=== PATIENT | female | born 1965 | race Caucasian/White ===

== ENCOUNTER → 2017-12-29 16:43 | Outpatient (CLI) | payer BC, OTHER, SELFPAY ==
--- NOTE | 2017-12-29 16:46 | MM_ITS ---
MM Dig screening mamm BI w/CAD CAD Screening COMPARISON: Digital mammograms with CAD 12/25/2016 and 12/16/2015 INDICATION: There is no personal or family history of breast cancer TECHNIQUE: Standard CC and MLO images were obtained. R2 CAD reviewed. FINDINGS: The breasts are composed primarily of fat with very minimal scattered fibro glandular densities in each breast. There is a benign-appearing calcification right breast. There is no suspicious lesion and there are no suspicious microcalcifications. IMPRESSION: Fatty type breast parenchyma with no suspicious lesion seen BI-RADS Category: 2 Benign Finding(s) RECOMMENDED FOLLOW-UP: 1YR - 1 YEAR FOLLOW-UP (A letter has been sent to the patient regarding results of the study.)
== END ==
PROVIDERS: PCP Family Medicine; Visit Provider Family Medicine
DX: Z12.31 Encounter for screening mammogram for malignant neoplasm of breast (principal)
CPT/HCPCS: 77067

== ENCOUNTER → 2019-01-11 16:44 | Outpatient (CLI) | payer BC, SELFPAY ==
--- NOTE | 2019-01-11 | MM_ITS ---
PROCEDURE: MM DIG SCREENING MAMM BI W/CAD CLINICAL INDICATION: There is no personal or family history of breast cancer COMPARISON: [facility] DIG MAMM-SCREEN LEXA from 12/16/2015 [facility] DIG MAMM-SCREEN LEXA W/CAD from 12/25/2016 [facility] MM Dig screening mamm BI w/CAD from 12/29/2017 TECHNIQUE: Standard CC and MLO images were obtained. R2 CAD reviewed. FINDINGS: The breasts are composed primarily of fat with minimal scattered fibroglandular densities in each breast. There is a benign-appearing calcification right breast. There is no suspicious lesion and no suspicious microcalcifications. IMPRESSION: Fatty type breast parenchyma with no suspicious lesions seen BI-RAD Category: 2 Benign Finding(s) FOLLOW-UP: 1YR 1 Year Follow-up (A letter has been sent to the patient regarding results of the study.) Dictated by: Dr. Pabol Chu MD 01/13/2019 08:[address] Pablo Chu MD in [facility] 01/13/2019 08:10
== END ==
PROVIDERS: PCP Family Medicine; Visit Provider Family Medicine
DX: Z12.31 Encounter for screening mammogram for malignant neoplasm of breast (principal)
CPT/HCPCS: 77067

== ENCOUNTER → 2020-07-10 07:46 | Outpatient (CLI) | payer SELFPAY ==
--- NOTE | 2020-07-10 07:53 | CT_ITS ---
PROCEDURE: CT HEART W CALCIUM SCORE CLINICAL HISTORY: SCREENING COMPARISON: No exams were available for comparison TECHNIQUE: Axial images obtained with sagittal and coronal reformats. All CT scans at the facility use one or more dose reduction, viz: automated exposure control, ma/kV adjustment per patient size (including targeted exams where dose is matched to indication, i.e. head), or iterative reconstruction technique. FINDINGS: The coronary artery calcium score is 53 Mild calcific plaque burden with moderate cardiovascular disease risk. There is also some aortic valve calcification noted the IMPRESSION: Mild calcific plaque burden with moderate cardiovascular disease risk Dictated by: Angelo Smyth MD 07/10/2020 12:51 Angelo Smyth MD in [facility] 07/10/2020 12:51
== END ==
PROVIDERS: PCP Family Medicine; Visit Provider Family Medicine
DX: Z13.6 Encounter for screening for cardiovascular disorders (principal)
CPT/HCPCS: 75571

== ENCOUNTER → 2022-10-28 14:40 | Outpatient (CLI) | payer OTHER, SELFPAY ==
--- NOTE | 2022-10-28 14:47 | XR_ITS ---
FINAL REPORT CLINICAL HISTORY: LT SIDED LOW BACK PAIN FINDINGS: LUMBAR SPINE Five views demonstrate no acute fracture. There are mild and moderate degenerative changes. Vascular calcification is identified. There is no malalignment. IMPRESSION: Degenerative changes without acute bony abnormality. Reviewed, Interpreted and Dictated by Royce Arnold III, MD Transcribed by Sonal Nick Authenticated and . [facility]
== END ==
PROVIDERS: PCP Family Medicine; Visit Provider Family Medicine
DX: M54.50 Low back pain, unspecified (principal)
CPT/HCPCS: 72110

== ENCOUNTER 2023-03-20 10:03 | Outpatient (CLI) | payer OTHER, SELFPAY ==
--- NOTE | 2023-03-20 10:08 | XR_ITS ---
PROCEDURE INFORMATION: Exam: XR Right Shoulder Exam date and time: 03/20/2023 10:11 AM Age: 57 years old Clinical indication: Pain; Shoulder; Right TECHNIQUE: Imaging protocol: Radiologic exam of the right shoulder. Views: 2 or more views. COMPARISON: CT HEART W CALCIUM SCORE 07/10/2020 7:59 AM FINDINGS: Bones/joints: Normal. Lungs: Calcified granulomas are incidentally noted in the lungs. Soft tissues: Normal. IMPRESSION: No acute process in the right shoulder.
== END 2023-03-20 23:59 ==
LOC: RAD 10:05
PROVIDERS: PCP Family Medicine; Visit Provider Family Medicine
DX: M25.511 Pain in right shoulder (principal)
CPT/HCPCS: 73030

== ENCOUNTER 2024-09-26 16:21 | Outpatient (CLI) | payer BC, SELFPAY ==
--- OUTSIDE RECORDS SUMMARY | 2024-08-18 07:45 | XMS_ITS ---
Author Organization [facility] Address [address] [facility] [address] [place] [id number] Care Team Providers Care Clinical Application Consultant Name Role Phone Oliver Munroe Primary Care Provider Allergies Allergen (clinical drug ingredient) Drug/Non Drug Allergy documented on EMR Reaction Allergy Type Onset Date Status amoxicillin / clavulanate Augmentin Unknown Drug Allergy Active ibuprofen Ibuprofen Unknown Drug Allergy Active Results Component Value Reference Range Notes P-T4 Free (thyroxine) Reviewed date:08/23/2024 01:12:16 PM Interpretation:Normal Performing Lab: Notes/Report: Test performed by [employer] [address], [address], [place] [address] Amauri Silva MD, Manager Electrical CLIA: [id number] Thyroxine Free (free T4) 1.24 0.86-1.76 ng/dL P-Total T3 Reviewed date:08/23/2024 01:12:17 PM Interpretation:Normal Performing Lab: Notes/Report: Test performed by [facility] [address] [place], [place] [address] [address], [address], [place] [address] Amauri Silva MD, Manager Electrical CLIA: [id number] Total T3 1.67 0.80-2.00 ng/mL P-T3 Uptake Reviewed date:08/23/2024 01:12:17 PM Interpretation:Normal Performing Lab: Notes/Report: Test performed by [facility] [address] [place] [address] [address], [address], [place] [address] Aamuri Silva MD, Manager Electrical CLIA: [id number] T3 Uptake 1.04 0.80-1.30 TBI Free T4 (FT4), which more accurately reflects how the thyroid gland is functioning, especially in hypothyroidism, (https://www.thyroid.org/thyroid -function-tests/), is the preferred alternative, compared to T3 uptake and free thyroxine index tests. P-TSH Receptor Binding Antib dagmar Reviewed date:08/23/2024 01:12:17 PM Interpretation:Normal Performing Lab: Notes/Report: Test performed by [facility] [address] , [address], [place] [address] Amauri Silva MD, Manager Electrical CLIA: [id number] TSH Receptor Binding Antibody <1.1 <1.76 IU/L P-TSI (Thyroid Stimulating I mmunoglobulin) Reviewed date:08/23/2024 01:12:17 PM Interpretation:Normal Performing Lab: Notes/Report: TSI (Thyroid Stimulating Immunoglobulin) <0.10 <=0.54 IU/L INTERPRETIVE INFORMATION: Thyroid Stimulating Immunoglobulin (TSI) 0.54 IU/L or less.........Consistent with healthy thyroid function or non-Graves thyroid or autoimmune disease. Those with healthy thyroid function typically have results less than 0.1 IU/L. 0.55 IU/L or greater......Consistent with Graves disease (autoimmune hyperthyroidism) This assay specifically detects thyroid stimulating autoantibodies. For diagnostic purposes, the results obtained from this assay should be used in combination with clinical examination, patient medical history, and other findings. Performed By: [email or web address] [address] [place] [address] Manager Electrical: Garcia Lakhani MD, PhD CLIA Number: [id number] REASON FOR VISIT b/p high Medications Medication SIG (Take, Route, Frequency, Duration) Notes Start Date End Date Status Glimepiride 4 MG 1 tablet with breakf ast or the first main meal of the day Orally Once a day 03/20/2023 Active Irbesartan 150 MG 1 tablet Orally Once a day; Duration: 30 days 08/18/2024 Active Janumet XR 50-1000 MG 2 tab(s) orally on ce a day (in the evening); Duration: 90 days Active Essential One Daily Multivit - 1 tab(s) orally once a day A ctive Farxiga 10 MG 1 tablet Orally Once a day Active Terbinafine HCl 250 MG 1 tablet Orally O nce a day; Duration: 90 days 01/08/2024 Active Metoprolol Succinate ER 50 MG 1 tablet Orally Once a day; Duration: 90 days 05/19/2024 Active Pravastatin Sodium 40 MG 1 tablet Orally Once a day; Duration: 90 days Active ReliOn Premier Test - as directed once daily 06/08 Active methIMAzole 10 MG 1 tablet Orally Once a day Active Estrogens Conjugated 0.625 MG/GM 1 applicatorful Vaginal Once a day 01/08/2024 Active Vital Signs Weight 192 lbs 08/18/2024 Blood pressure systolic 160 mm Hg 08/19/19 25 Blood pressure diastolic 88 mm Hg 025 Heart Rate 80 /min 08/18/2024 Height 69 in 08/18/2024 BMI 28.35 kg/m2 08/18/2024 Encounters Encounter Location Date Provider Diagnosis [facility] [address] [facility] [address] [place] [id number] 08/18/2024 Oliver Munroe Essential hypertensi on I10 ; Hyperthyroidism E05.90 and BMI 28.0-28.9,adult Z68.28 Assessments Encounter Date Diagnosis (ICD Code) Assessment Notes Treatment Notes Treatment Clinical Notes Section Notes 08/18/2024 Essential hypertension (ICD-10 - I10) Blood pressure journal 08/18/2024 Hyperthyroidism (ICD-10 - E05.90) 08/18/2024 BMI 28.0-28.9,adult (ICD-10 - Z68.28) Plan Of Treatment Medication Medication Name Sig Start Date Stop Date Notes Irbesartan 150 MG 1 tablet Orally Once a day; Duration: 30 days 08/18/2024 methIMAzole 10 MG 1 tablet Orally Once a day Treatment Notes Assessment Notes Essential hypertension Blood pressure cinthia Jauregui Appt Details Follow Up: via phone to repo rt test results, Reason: Provider Name:Oliver rodriguez, 12/11/2024 05:00:00 PM, [address], [address], [place], [id number], Progress Notes * Brina JACOBS:1965 ( 59 yo F)Acc No.[id number]:08/18/2024 Progress Notes Patient: Anne Marie CASTRO Provider: Aron Munroe M.D. :1965 A ge:58 Y S ex:Female Date:08/18/2024 Address:[address] [place] [address], [facility], [id number] Subjective: * Chief Complaints: * 1 . B/p high. * HPI: C ardiology: 58 year old female presents with c/o Blood Pressure Elevated?Pt complains of elevated bp at home. Pt states she had some dizziness yesterday and systolic was in the 160's. * ROS: D ERMATOLOGY: no R charley. n o H hugo. G ASTROENTEROLOGY: no N ausea. n o V omiting. U ROLOGY: no D ifficulty urinating. n o B lood in urine. * Medical History: T ype 2 Diabetes, Hyperlipidemia, Hypothyroidism, Goiter, low TSH, Kidney Stones, Hypertension. * Surgical History: T hyroid Biopsy 2006. * Hospitalization/Major Diagno stic Procedure: Juan enies Past Hospitalization. * Family History: F ather: 55 yrs, pancreatic cancer. M other: alive. * Social History: C URRENT TOBACCO USE: No . C affeine: yes, frequency: coffee daily. Past smoking status: no, 15 pack year history, quit 10/29. * Medications: T aking Essential One Daily Multivit - Tablet 1 tab(s) orally once a day , Taking Estrogens Conjugated 0.625 MG/GM Cream 1 applicatorful Vaginal Once a day , Taking Terbinafine HCl 250 MG Tablet 1 tablet Orally Once a day , Taking Pravastatin Sodium 40 MG Tablet 1 tablet Orally Once a day , Taking Metoprolol Succinate ER 50 MG Tablet Extended Release 24 Hour 1 tablet Orally Once a day , Taking ReliOn Premier Test - Strip as directed once daily , Taking Farxiga 10 MG Tablet 1 tablet Orally Once a day , Taking Glimepiride 4 MG Tablet 1 tablet with breakfast or the first main meal of the day Orally Once a day , Taking Janumet XR 50-1000 MG Tablet Extended Release 24 Hour 2 tab(s) orally once a day (in the evening) , Taking methIMAzole 10 MG Tablet 1 tablet Orally Once a day , Medication List reviewed and reconciled with the patient * Allergies: I buprofen, Augmentin. Objective: * Vitals: W t: 192, Temp: 97.9, BP: 160/88, HR: 80, Nurse: david, Ht: 69, BMI:28.35. * Examination: E ndocrinology: General Appearance: N AD. H eart: R SR. L ungs:?clear to auscultation. E xtremities: no leg edema. Assessment: * Assessment: 1. E ssential hypertension - I10 (Primary) 2 . H yperthyroidism - E05.90? 3. B DE 28.0-28.9,adult - Z68.28 Plan: * Treatment: 2. H yperthyroidism Continue methIMAzole Tablet, 10 MG, 1 tablet, Orally, Once a day. L AB: P-T4 Free (thyroxine) (Collection Date & Time - 08/18/2024 11:15 AM) N ormal Value Reference Range T hyroxine Free (free T4) 1.24 0.86-1.76 - ng/d L * Paris Henningira 08/23/2024 01:11:3 6 PM EDT > Left detailed message on pt's identified voicemail ?LAB: P-Total T3 (Collection Date & Time - 08/18/2024 11:15 AM)?Normal* Value Reference Range T otal T3 1.67 0.80-2.00 - ng/mL * Juvencio Monique 08/23/2024 01:11:3 6 PM EDT > Left detailed message on pt's identified voicemail ?LAB: P-T3 Uptake (Collection Date & Time - 08/18/2024 11:15 AM)?Normal* Value Reference Range T 3 Uptake 1.04 0.80-1.30 - TBI * Juvencio Monique 08/23/2024 01:11:3 6 PM EDT > Left detailed message on pt's identified voicemail ?LAB: P-TSH Receptor Binding Antibody (Collection Date & Time - 08/18/2024 11:15 AM)?Normal* Value Reference Range T SH Receptor Binding Antibody <1.1 <1.76 - IU/ L * Monique Henning 08/23/2024 01:11:3 6 PM EDT > Left detailed message on pt's identified voicemail ?LAB: P-TSI (Thyroid Stimulating Immunoglobulin) (Collection Date & Time - 08/18/2024 11:15 AM)?Normal* Value Reference Range T SI (Thyroid Stimulating Immunoglobulin) <0.10 <=0.54 - IU/L * Monique Henning 08/23/2024 01:11:3 6 PM EDT > Left detailed message on pt's identified voicemail * Procedure Codes: 1 036F TOBACCO NON-USER, G8420 BMI<30 AND >=22 CALC & DOCU * Follow Up: v ia phone to report test results * Images: Billing Information: * Visit Code: 79412 Office Visit, Est Pt., Level 4. * Procedure Codes: 1036F TOBACCO NON-USER. G8420 BMI<30 AND >=22 CALC & DOCU. * Electronic signature of Kim Munroe MD on 09/26/2024 at 04:23 PM EDT Sign off status: Pending * Provider: Aron Munroe M.D. Date: 0 08/18/2024 Generated for Minh diez/Lenore/Elvira on: 0 09/26/2024 04:23 PM EDT History and Physical Notes * HPI (History of Present Illness) Category Sub-Category Detail Notes Category Not es Cardiology Blood Pressure Elevated Pt compl ains of elevated bp at home. Pt states she had some dizziness yesterday and systolic was in the 160's Examination Category Sub-Category Detail Notes Category Not es Endocrinology Heart: RSR Lungs: clear to auscultatio n Extremities: no leg edema General Appearance: NAD
--- OUTSIDE RECORDS SUMMARY | 2024-09-04 13:00 | XMS_ITS ---
Author Organization [facility] Address [address] [id number] Care Team Providers Care Vp Care Management Name Role Phone Oliver Munroe Primary Care Provider [phone] Allergies Allergen (clinical drug ingredient) Drug/Non Drug Allergy documented on EMR Reaction Allergy Type Onset Date Status amoxicillin / clavulanate Augmentin Unknown Drug Allergy Active ibuprofen Ibuprofen Unknown Drug Allergy Active Results Component Value Reference Range Notes Glucose (In-House) Reviewed date:09/05/2024 09:40:49 AM Interpretation: Performing Lab: Notes/Report: blood glucose 120 74 - 106 mg/dL Glycohemoglobin A1c (in hous e) Reviewed date:09/05/2024 09:40:40 AM Interpretation: Performing Lab: Notes/Report: glycohemoglobin 8.4% 5 - 6.5 % Reason For Referral Reason [facility] [place] Diagnosis 1 Plantar fasciitis of left foot (M72.2) Referral Organization [facility] Referring Provider First Name Oliver Referring Provider Last Name Ludwig Referring Provider Speciality [facility] Referred Provider Podiatry, ., Referred Provider Specialty Podiatry General Notes Rebecca Buitrago 2024 10:32:03 AM > faxed to [facility] [place] Referral Priority Routine REASON FOR VISIT 3 months Medications Medication SIG (Take, Route, Frequency, Duration) Notes Start Date End Date Status Metoprolol Succinate ER 50 MG 1 tablet Orally Once a day; Duration: 90 days 05/19/2024 Active ReliOn Premier Test - as directed once daily 06/08 Active Irbesartan 150 MG 1 tablet Orally Once a day; Duration: 30 days 08/18/2024 Active methIMAzole 10 MG 1 tablet Orally Once a day Active Terbinafine HCl 250 MG Take 1 tablet by mouth once daily; Duration: 90 Active Farxiga 10 MG 1 tablet Orally Once a day Active Janumet XR 50-1000 MG 2 tab(s) orally on ce a day (in the evening) Active Glimepiride 4 MG 1 tablet with breakf ast or the first main meal of the day Orally Once a day 03/20/2023 Active Estrogens Conjugated 0.625 MG/GM 1 applicatorful Vaginal Once a day 01/08/2024 Active Pravastatin Sodium 40 MG 1 tablet Orally Once a day; Duration: 90 days Active Mounjaro 2.5 MG/0.5ML 0.5 mL Subcutaneous weekly 0 09/04/2024 Active Essential One Daily Multivit - 1 tab(s) orally once a day A ctive Problems Problem Type SNOMED Code ICD Code Onset Dates Problem Status W/U Status Risk Notes Problem Plantar fasciitis of left foot ([id number] 9101) Plantar fasciitis of left foot (M72.2) Active confirmed Vital Signs Weight 196.6 lbs 09/04/2024 Blood pressure systolic 122 mm Hg 09/05/19 25 Blood pressure diastolic 68 mm Hg 025 Heart Rate 78 /min 09/04/2024 Height 69 in 09/04/2024 BMI 29.03 kg/m2 09/04/2024 Encounters Encounter Location Date Provider Diagnosis [facility] [address] [facility] [address] [id number] 09/04/2024 Oliver Munroe Type 2 diabetes bharath itus without complication E11.9 ; Plantar fasciitis of left foot M72.2 and BMI 29.0-29.9,adult Z68.29 Assessments Encounter Date Diagnosis (ICD Code) Assessment Notes Treatment Notes Treatment Clinical Notes Section Notes 09/04/2024 Type 2 diabetes mellitus without complication (ICD-10 - E11.9) 09/04/2024 Plantar fasciitis of left foot (ICD-10 - M72.2) 09/04/2024 BMI 29.0-29.9,adult (ICD-10 - Z68.29) Plan Of Treatment Medication Medication Name Sig Start Date Stop Date Notes Farxiga 10 MG 1 tablet Orally Once a day Janumet XR 50-1000 MG 2 tab(s) orally on ce a day (in the evening) Glimepiride 4 MG 1 tablet with breakf ast or the first main meal of the day Orally Once a day 03/20/2023 Mounjaro 2.5 MG/0.5ML 0.5 mL Subcutaneous weekly 5 Referrals Referral Date Details 09/04/2024 09/04/2024, [facility] [place], ., Podiatry Next Appt Details Follow Up: 3 Months, Reason: Provider Name:Oliver Howell ry, 12/11/2024 05:00:00 PM, [address] [facility] [address], [place], [place], [id number], Progress Notes * Shilpa JACOBSaDOB:1965 ( 59 yo F)Acc No.[id number]:09/04/2024 Progress Notes Patient: Anne Marie CASTRO Provider: Aron Munroe M.D. :1965 A ge:59 Y S ex:Female Date:09/04/2024 Address:[address] [place] [address] [address] , [id number] Subjective: * Chief Complaints: * 1 . 3 months. * HPI: E ndocrinology: 59 year old female presents with c/o Recent Blood Sugars P t here to f/u on DM 2. Pt states her blood sugar at home was over 350 a couple times so she started?taking Glimepiride again on 08/30 and blood sugar has improved . C ardiology: c/o Blood Pressure Elevated P t here to f/u on hypertension. Pt started on Irbesartan 150mg 08/18. Pt states she has been checking bp at home and it have improved 120-133/60's-70's. * ROS: D ERMATOLOGY: no R charley. n o H hugo. G ASTROENTEROLOGY: no N ausea. n o V omiting. U ROLOGY: no D ifficulty urinating. n o B lood in urine. * Medical History: T ype 2 Diabetes, Hyperlipidemia, Hypothyroidism, Goiter, low TSH, Kidney Stones, Hypertension. * Surgical History: T hyroid Biopsy 2006. * Hospitalization/Major Diagno stic Procedure: D enies Past Hospitalization. * Family History: F [...] applicatorful Vaginal Once a day , Taking Pravastatin Sodium 40 MG Tablet 1 tablet Orally Once a day , Taking Metoprolol Succinate ER 50 MG Tablet Extended Release 24 Hour 1 tablet Orally Once a day , Taking ReliOn Premier Test - Strip as directed once daily , Taking Farxiga 10 MG Tablet 1 tablet Orally Once a day , Taking Janumet XR 50-1000 MG Tablet Extended Release 24 Hour 2 tab(s) orally once a day (in the evening) , Taking Irbesartan 150 MG Tablet 1 tablet Orally Once a day , Taking methIMAzole 10 MG Tablet 1 tablet Orally Once a day , Taking Terbinafine HCl 250 MG Tablet Take 1 tablet by mouth once daily , Taking Glimepiride 4 MG Tablet 1 tablet with breakfast or the first main meal of the day Orally Once a day , Medication List reviewed and reconciled with the patient * Allergies: I buprofen, Augmentin. Objective: * Vitals: W t: 196.6, Temp: 97.8, BP: 122/68, HR: 78, Nurse: david, Ht: 69, BMI:29.03. * Examination: E ndocrinology: General Appearance: N AD. H eart: R SR, I/ systolic murmur. L ungs: c lear to auscultation. E xtremities: no leg edema, tenderness to palpation along the mid left plantar fascia. Assessment: * Assessment: 1. T ype 2 diabetes mellitus without complication - E11.9 (Primary) 2 . P lantar fasciitis of left foot - M72.2 3 . B AL 29.0-29.9,adult - Z68.29 ? Plan: * Treatment: Value Reference Range b lood glucose 120 74 - 106 mg/dL * Juvencio Monique 09/04/2024 05:31: 06 PM EDT > Provider reviewed results while patient in office. ?LAB: Glycohemoglobin A1c (in house) (Collection Date & Time - 09/04/2024)* Value Reference Range g lycohemoglobin 8.4% 5 - 6.5 % * Juvencio Monique 09/04/2024 05:32: 15 PM EDT > Provider reviewed results while patient in office. 2.?Plantar fasciitis of left foot? Referral To:., Podiatry??Podiatry ?Reason:[facility] [place] * Procedure Codes: 3 6416 CAPILLARY BLOOD DRAW, 88130 GLUCOSE TEST, 76487 GLYCATED HEMOGLOBIN TEST, Modifiers: QW , 1036F TOBACCO NON-USER, G8420 BMI<30 AND >=22 CALC & DOCU, 3052F HG A1C>EQUAL 8.0%<EQUAL 9.0%, 3074F SYST BP LT 130 MM HG, 3078F DIAST BP < 80 MM HG * Follow Up: 3 Months * Images: Billing Information: * Visit Code: 25071 Office Visit, Est Pt., Level 3. * Procedure Codes: 34193 CAPILLARY BLOOD DRAW. 07471 GLUCOSE TEST. 78978 GLYCATED HEMOGLOBIN TEST. Modifiers: QW 1036F TOBACCO NON-USER. G8420 BMI<30 AND >=22 CALC & DOCU. 3052F HG A1C>EQUAL 8.0%<EQUAL 9.0%. 3074F SYST BP LT 130 MM HG. 3078F DIAST BP < 80 MM HG. * Electronic signature of Kim Munroe MD on 09/26/2024 at 04:23 PM EDT Sign off status: Pending * Provider: Aron Munroe M.D. Date: 09/04/2024 Generated for Minh idez/Lenore/Elvira on: 09/26/2024 04:23 PM EDT History and Physical Notes * HPI (History of Present Illness) Category Sub-Category Detail Notes Category Not es Endocrinology Recent Blood Sugars Pt here to f /u on DM 2. Pt states her blood sugar at home was over 350 a couple times so she started taking Glimepiride again on 08/30 and blood sugar has improved Cardiology Blood Pressure Elevated Pt here to f/u on hypertension. Pt started on Irbesartan 150mg 08/18. Pt states she has been checking bp at home and it have improved 120-133/60's-70's Examination Category Sub-Category Detail Notes Category Not es Endocrinology Heart: RSR, I/ systolic murmur Lungs: clear to auscultatio n Extremities: no leg edema, tender ness to palpation along the mid left plantar fascia General Appearance: NAD Consultation Request Notes Referral Date Referring Provider Referred Provider Not es 09/04/2024 Oliver Munroe Podiatry, ., [facility] [place]
--- OUTSIDE RECORDS SUMMARY | 2024-09-05 06:01 | XMS_ITS ---
Author Organization [facility] Address [address] [facility] [address] [facility] [address] [place] [id number] Care Team Providers Care Tool Machine Setup Operator Name Role Phone Oliver Munroe Primary Care Provider [phone] REASON FOR VISIT due elian, col Encounters Encounter Location Date Provider Diagnosis [facility] [facility] [address] [facility] [address] [place] [id number] 09/05/2024 Oliver Munroe Screening for colon cancer Z12.11 and Screening for breast cancer Z12.39 Assessments Encounter Date Diagnosis (ICD Code) Assessment Notes Treatment Notes Treatment Clinical Notes Section Notes 09/05/2024 Screening for colon cancer (ICD-10 - Z12.11) 09/05/2024 Screening for breast cancer (ICD-10 - Z12.39) Plan Of Treatment Pending Test Test Name Order Date Mammogram 09/05/2024 Cologuard 09/05/2024 Next Appt Details Provider Name:Oliver Howell ry, 12/11/2024 05:00:00 PM, [address], [place], [id number], Progress Notes * Shilpa JACOBSChelo:1965 ( 59 yo F)Acc No.[id number]:09/05/2024 Patient: Anne Marie CASTRO :1965 A ge:59 Y S ex:Female Address:[address] [place] [address] Subjective: * Chief Complaints: * D ue elian, col * Medical History: * Surgical History: * Hospitalization/Major Diagno stic Procedure: * Medications: Objective: * Vitals: * Physical Examination: Assessment: * Assessment: 1. S creening for colon cancer - Z12.11 (Primary) 2 . S creening for breast cancer - Z12.39 Plan: * Treatment: ?Imaging: Mammogram* Olena Corcoran 09/19/2024 02:5 3:57 PM EDT >sent to [facility] for referral to [facility] 2.?Screening for breast cancer?Imaging: Mammogram* Olena Corcoran 09/19/2024 02:5 3:57 PM EDT >sent to [facility] for referral to [facility] * Procedure Codes: * true * Date: Generated for Minh diez/Lenore/Memosmitting on: 0 09/26/2024 04:23 PM EDT
--- OUTSIDE RECORDS SUMMARY | 2024-09-26 16:24 | XMS_ITS | Patient Health Record ---
[facility] Address [address] [facility] [address] [place], [place] [id number] Care Team Providers Care Art Psychotherapist Name Role Phone Oliver Munroe Primary Care Provider Taqueria [place] [phone] Allergies Allergen (clinical drug ingredient) Drug/Non Drug Allergy documented on EMR Reaction Allergy Type Onset Date Status amoxicillin / clavulanate Augmentin Unknown Drug Allergy Active ibuprofen Ibuprofen Unknown Drug Allergy Active Results Component Value Reference Range Notes P-T4 Free (thyroxine) Reviewed date:08/23/2024 01:12:16 PM Interpretation:Normal Performing Lab: Notes/Report: Test performed by [facility] [address] [place], [place] [address] [place] [address] Amauri Silva MD, Non Profit Financial Controller CLIA: [id number] Thyroxine Free (free T4) 1.24 0.86-1.76 ng/dL P-Total T3 Reviewed date:08/23/2024 01:12:17 PM Interpretation:Normal Performing Lab: Notes/Report: Test performed by [facility] [address] [place] [address], [place] [address] Amauri Silva MD, Non Profit Financial Controller CLIA: [id number] Total T3 1.67 0.80-2.00 ng/mL P-T3 Uptake Reviewed date:08/23/2024 01:12:17 PM Interpretation:Normal Performing Lab: Notes/Report: Test performed by [facility] [address] [place] [address] [place] [address] Amauri Silva MD, Non Profit Financial Controller CLIA: [id number] T3 Uptake 1.04 0.80-1.30 TBI Free T4 (FT4), which more accurately reflects how the thyroid gland is functioning, especially in hypothyroidism, (https://www.thyroid.org/thy gytw-wdbsyfnf-fdkpr/), is the preferred alternative, compared to T3 uptake and free thyroxine index tests. P-TSH Receptor Binding Antib dagmar Reviewed date:08/23/2024 01:12:17 PM Interpretation:Normal Performing Lab: Notes/Report: Test performed by [facility] [address] [place] [address] , [place] [address] Amauri Silva MD, Non Profit Financial Controller CLIA: [id number] TSH Receptor Binding Antibody <1.1 <1.76 IU/L [...] medical history, and other findings. Performed By: [facility] [address] [place] [address] Non Profit Financial Controller: Garcia Lakhani MD, PhD CLIA Number: [id number] P-Potassium Reviewed date:01/24/2024 09:12:11 AM Interpretation:5.8 Performing Lab: Notes/Report: Test performed by [facility] [address] [place] [address] , [place] [address] Amauri Silva MD, Non Profit Financial Controller CLIA: [id number] Potassium 5.8 3.5-5.3 mmol/L P-Potassium Reviewed date:04/04/2024 09:12:55 AM Interpretation:Normal Performing Lab: Notes/Report: Test performed by [facility] [address] [place] [address] , [address], [place] [address] Amauri Silva MD, Non Profit Financial Controller CLIA: [id number] Potassium 4.6 3.5-5.3 mmol/L CBC Venipuncture (in house) Reviewed date:05/19/2024 05:19:07 PM Interpretation: Performing Lab: Notes/Report: wbc 7.7 3.5 - 10 lymph 28.9% 15 - 50 mid 17.5% 2 - 15 gran 53.6% 35 - 80 rbc 5.25 3.5 - 5.5 hgb 15.3 11.5 - 16.5 hct 45.3 35 - 55 mcv 86.3 75 - 100 mch 29.1 25 - 35 mchc 33.7 31 - 38 platlet 157 100 - 400 P-Basic Metabolic Panel (BMP ) Reviewed date:05/21/2024 10:57:28 AM Interpretation: Normal Performing Lab: Notes/Report: Test performed by [facility] [address] [place] [address] , [address], [place] [address] Amauri Silva MD, Non Profit Financial Controller CLIA: [id number] Sodium 141 135-145 mmol/L Potassium 4.4 3.5-5.3 mmol/L Chloride 102 97-108 mmol/L CO2 24 22-32 mmol/L Glucose 90 65-99 mg/dL BUN 16 8-23 mg/dL Creatinine 0.76 0.50-1.00 mg/dL Calcium 9.8 8.6-10.4 mg/dL eGFR by Creatinine 89 >59 mL/min/1.73m2 P-T4 Free (thyroxine) Reviewed date:05/21/2024 10:57:28 AM Interpretation:1.78 Performing Lab: Notes/Report: Test performed by [facility] [address] [place] [address] [address], [address], [place] [address] Amauri Silva MD, Non Profit Financial Controller CLIA: [id number] Thyroxine Free (free T4) 1.78 0.86-1.76 ng/dL P-Total T3 Reviewed date:05/21/2024 10:57:29 AM Interpretation:2.57 Performing Lab: Notes/Report: Test performed by [facility] [address] , [address], [place] [address] Amauri Silva MD, Non Profit Financial Controller CLIA: [id number] Total T3 2.57 0.80-2.00 ng/mL P-TSH Reviewed date:05/21/2024 10:57:29 AM Interpretation:<0.005 Performing Lab: Notes/Report: Test performed by [facility] , [address], [place] [address] Amauri Silva MD, Non Profit Financial Controller CLIA: [id number] TSH <0.005 0.43-5.25 mU/L P-TSH Reviewed date:07/12/2024 12:27:29 PM Interpretation:<0.005 Performing Lab: Notes/Report: Test performed by [facility] , [place] [address] Amauri Silva MD, Non Profit Financial Controller CLIA: [id number] TSH <0.005 0.43-5.25 mU/L P-T4 (Thyroxine) Reviewed date:07/12/2024 12:27:29 PM Interpretation: Normal Performing Lab: Notes/Report: Test performed by [facility] , [address], [place] [address] Amauri Silva MD, Non Profit Financial Controller CLIA: [id number] Thyroxine (T4) 8.91 4.50-11.70 ug/dL P-Total T3 Reviewed date:07/12/2024 12:27:29 PM Interpretation: Normal Performing Lab: Notes/Report: Test performed by [facility] , [place] [address] Amauri Silva MD, Non Profit Financial Controller CLIA: [id number] Total T3 1.70 0.80-2.00 ng/mL P-T4 Free (thyroxine) Reviewed date:07/12/2024 12:27:29 PM Interpretation: Normal Performing Lab: Notes/Report: [facility] , [address], [place] [address] Amauri Silva MD, Non Profit Financial Controller CLIA: [id number] Thyroxine Free (free T4) 1.25 0.86-1.76 ng/dL P-Microalbumin/Creatinine, R andom Urine Sample Reviewed date:01/11/2024 10:47:32 AM Interpretation: Normal Performing Lab: Notes/Report: Test performed by [facility] [address] [place] [address] , [place] [address] Amauri Silva MD, Non Profit Financial Controller CLIA: [id number] Albumin/Creatinine Ratio, Urine 19 0-30 ug/m g Microalbumin, Urine, Random 0.6 Creatinine, Urine 32.4 P-Lipid Panel Reviewed date:01/11/2024 10:47:32 AM Interpretation: Normal Performing Lab: Notes/Report: Test performed by [facility] [address] [place] [address] , [place] [address] Amauri Silva MD, Non Profit Financial Controller CLIA: [id number] Cholesterol 140 <200 mg/dL Triglycerides 110 <150 mg/dL HDL Cholesterol 53 >39 mg/dL Cholesterol / HDL Ratio 2.64 0.00-4.44 Ratio Non-HDL Cholesterol 87 <130 mg/dL LDL Cholesterol (Calculation) 65 <130 mg/dL * Categories as recommended by the 2004 ATPIII guidelines LDL Cholesterol Levels* Less than 100 mg/dL Optimal 100 to 129 mg/dL Near Optimal/ Above Optimal 130 to 159 mg/dL Borderline High 160 to 189 mg/dL High 190 mg/dL and above Very High LDL/HDL Ratio 1.2 <3.3 Ratio LDL Cholesterol Patient History Test Date: 03/20/2023 LDL Results: 71 Units: mg/dL % Change: - Test Date: 01/08/2024 LDL Results: 65 Units: mg/dL % Change: -8% P-Comprehensive Metabolic Pa ashish (CMP) Reviewed date:01/11/2024 10:47:32 AM Interpretation:K+ 5.8, gluc 200, alt 50, ast 55 Performing Lab: Notes/Report: Test performed by [facility], [address] , [address], [place] [address] Amauri Silva MD, Non Profit Financial Controller CLIA: [id number] Sodium 137 135-145 mmol/L Potassium 5.8 3.5-5.3 mmol/L Chloride 102 97-108 mmol/L CO2 24 22-32 mmol/L Glucose 200 65-99 mg/dL BUN 16 8-23 mg/dL Creatinine 0.63 0.50-1.00 mg/dL Calcium 9.3 8.6-10.4 mg/dL eGFR by Creatinine 101 >59 mL/min/1.73m2 Protein 6.8 6.0-8.3 g/dL Albumin 4.3 3.5-5.3 g/dL Alkaline Phosphatase 112 35-121 IU/L ALT (SGPT) 50 <5-47 IU/L AST (SGOT) 55 <5-40 IU/L Bilirubin, Total 0.4 <0.2-1.2 mg/dL A/G Ratio 1.7 1.1-2.5 Glycohemoglobin A1c (in hous e) Reviewed date:01/10/2024 08:43:33 AM Interpretation: Performing Lab: Notes/Report: glycohemoglobin 7.8% 5 - 6.5 % Glucose (In-House) Reviewed date:01/10/2024 08:43:26 AM Interpretation:109 Performing Lab: Notes/Report: 109 blood glucose 109 74 - 106 mg/dL CBC Fingerstick (in house) Reviewed date:12/06/2023 09:19:48 AM Interpretation: Performing Lab: Notes/Report: wbc 7.3 3.5 - 10 lym 22.6% 15 - 50 mid 6.5% 2 - 15 gran 70.9% 35 - 80 rbc 5.07 3.5 - 5.5 hgb 14.8 11.5 - 16.5 hct 44.9 35 - 55 mcv 88.4 75 - 100 mch 29.1 25 - 35 mchc 32.9 31 - 38 plat 145 100 - 400 CBC Fingerstick (in house) Reviewed date:04/15/2024 11:08:45 AM Interpretation: Performing Lab: Notes/Report: wbc 8.0 3.5 - 10 lym 26.5% 15 - 50 mid 6.0% 2 - 15 gran 66.5% 35 - 80 rbc 5.19 3.5 - 5.5 hgb 15.3 11.5 - 16.5 hct 44.6 35 - 55 mcv 85.8 75 - 100 mch 29.5 25 - 35 mchc 34.3 31 - 38 plat 129 100 - 400 Glucose (In-House) Reviewed date:09/05/2024 09:40:49 AM Interpretation: Performing Lab: Notes/Report: blood glucose 120 74 - 106 mg/dL Glycohemoglobin A1c (in hous e) Reviewed date:09/05/2024 09:40:40 AM Interpretation: Performing Lab: Notes/Report: glycohemoglobin 8.4% 5 - 6.5 % Medications Medication SIG (Take, Route, Frequency, Duration) Notes Start Date End Date Status ReliOn Premier Test - as directed once daily 06/08 Active Metoprolol Succinate ER 50 MG 1 tablet am, 2 tablets pm Orally Once a day 05/19/2024 Active methIMAzole 10 MG 1 tablet Orally Once a day Active Terbinafine HCl 250 MG Take 1 tablet by mouth once daily; Duration: 90 Active Irbesartan 150 MG Take 1 tablet by once daily; Duration: 30 Active Mounjaro 5 MG/0.5ML 0.5 mL Subcutaneous once a week; Duration: 30 days 09/25/2024 Active Farxiga 10 MG 1 tablet Orally Once a day Active Janumet XR 50-1000 MG 2 tab(s) orally on ce a day (in the evening) Active Glimepiride 4 MG 1 tablet with breakf ast or the first main meal of the day Orally Once a day 03/20/2023 Active Essential One Daily Multivit - 1 tab(s) orally once a day A ctive Estrogens Conjugated 0.625 MG/GM 1 applicatorful Vaginal Once a day 01/08/2024 Active Pravastatin Sodium 40 MG 1 tablet Orally Once a day; Duration: 90 days Active Immunizations Vaccine Route Administration Date Status Comme nts PNEUMOVAX 23 VACCINE IM Intramuscular 01/08/2024 Administe red Fluzone Quad (6months&older) IM Intramuscular 12/14/2016 Administered Fluzone Quad (6months&older) IM Intramuscular 12/30/2017 Administered Fluzone Quad (6months&older) IM Intramuscular 12/15/2018 Administered Fluzone Quad (6months&older) IM Intramuscular 01/08/2024 Administered Fluzone Intradermal Quad private(18-64yrs) ID Intradermal 12/09/2015 Administered Flublok IM Intramuscular 12/04/2019 Administered COVID 19 Pfizer Unknown 10/19/2020 Administered Problems Problem Type SNOMED Code ICD Code Onset Dates Problem Status W/U Status Risk Notes Problem Essential hypertension (78292051) Essential hypertension (I10) Active confirmed Problem Hyperthyroidism (75055471) Hyperthyroidism (E05.90) Active confirmed Problem Mixed anxiety and depressive disorder (513407733) Depression with anxiety (F41.8) Active confirmed Problem Plantar fasciitis of left foot (17848397203720071) Plantar fasciitis of left foot (M72.2) Active confirmed Problem Type II diabetes mellitus without complication (957513021) Type 2 diabetes mellitus without complication (E11.9) Active confirmed Problem Atrophic vaginitis (43068031) Atrophic vaginitis (N95.2) Active confirmed Problem Thyroid goiter (7749764) Thyroid goiter (E04.9) Active confirmed Problem Pure hypercholesterolemia (809413100) Pure hypercholesterolemia (E78.00) Active confirmed Vital Signs Heart Rate 78 /min 09/04/2024 Blood pressure diastolic 68 mm Hg 09/04/2024 Height 69 in 09/04/2024 Blood pressure systolic 122 mm Hg 09/04/2024 Weight 196.6 lbs 09/04/2024 BMI 29.03 kg/m2 09/04/2024 Encounters Encounter Location Date Provider Diagnosis [facility] [address] [place], [place] [id number] 12/04/2023 [place] Acute URI J06.9 [facility] [address] [place], [place] [id number] 01/08/2024 Oliver [place] Type 2 diabetes bharath itus without complication E11.9 ; Pure hypercholesterolemia E78.00 ; Atrophic vaginitis N95.2 and Onycholysis L60.1 [facility] [address] [place], [place] [id number] 01/18/2024 Oliver [place] Hyperkalemia E87.5 [facility] [address] [place], [place] [id number] 03/31/2024 Oliver [place] Hyperkalemia E87.5 [facility] [address] [place], [place] [id number] 04/14/2024 Oliver [place] Sore throat J02.9 [facility] [address] [place], [place] [id number] 05/19/2024 Oliver [place] Blood pressure eleva shahnaz without history of HTN R03.0 ; Hyperthyroidism E05.90 and Cardiac murmur R01.1 [facility] [address] [place], [place] [id number] 06/08/2024 Oliver [place] Essential hypertensi on I10 ; Hyperthyroidism E05.90 ; Type 2 diabetes mellitus without complication E11.9 and BMI 29.0-29.9,adult Z68.29 [facility] [address] [facility] [address] [place], [place] [id number] 07/10/2024 Oliver [place] Hyperthyroidism E05. 90 [facility] [address] [place], [place] [id number] 08/18/2024 Oliver [place] Essential hypertensi on I10 ; Hyperthyroidism E05.90 and BMI 28.0-28.9,adult Z68.28 [facility] [address] [place] [id number] 09/04/2024 Oliver [place] Type 2 diabetes bharath itus without complication E11.9 ; Plantar fasciitis of left foot M72.2 and BMI 29.0-29.9,adult Z68.29 [facility] [address] [place] [id number] 01/11/2024 Oliver [place] [facility] [address] [place] [id number] 01/24/2024 [place] [facility] [address] [place] [id number] 03/09/2024 Oliver [place] Type 2 diabetes bharath itus without complication E11.9 [facility] [address] [place] [id number] 03/15/2024 [place] [facility] [address] [place] [id number] 05/21/2024 Oliver [place] [facility] [address] [place] [id number] 05/23/2024 R [place] [facility] [address] [place] [id number] 06/08/2024 [place] [facility] [address] [place] [id number] 07/12/2024 [place] [facility] [address] [place] [id number] 09/05/2024 Oliver [place] [facility] [address] [place] [id number] 09/05/2024 Oliver [place] Screening for colon cancer Z12.11 and Screening for breast cancer Z12.39 [facility] [address] [place] [id number] 09/15/2024 Oliver [place] Type 2 diabetes bharath itus without complication E11.9 and Essential hypertension I10 [facility] [address] [place] [id number] 09/19/2024 [place] [facility] [address] [place] [id number] 12/06/2023 Oliver [place] Type 2 diabetes bharath itus without complication E11.9 [facility] [address] [place] [id number] 01/11/2024 Oliver [place] Atrophic vaginitis N 95.2 [facility] [address] [place] [id number] 03/13/2024 [place] [facility] [address] [place] [id number] 05/01/2024 Oliver [place] Onycholysis L60.1 an d Type 2 diabetes mellitus without complication E11.9 [facility] [address] [place] [id number] 06/20/2024 [place] [facility] [address] [place] [id number] 06/26/2024 [place] [facility] [address] [place], [place] [id number] 08/21/2024 [place] [facility] [address] [place] [id number] 08/28/2024 Oliver [place] Type 2 diabetes bharath itus without complication E11.9 [facility] [address] [place] [id number] 09/12/2024 Oliver [place] Essential hypertensi on I10 [facility] [address] [place] [id number] 09/18/2024 [place] [facility] [address] [place] [id number] 09/25/2024 [place] [facility] [address] [place] [id number] 09/25/2024 [place] [facility] [address] [facility] [address] [place] [id number] 09/25/2024 Oliver Munroe Assessments Encounter Date Diagnosis (ICD Code) Assessment Notes Treatment Notes Treatment Clinical Notes Section Notes 01/08/2024 Type 2 diabetes bharath itus without complication (ICD-10 - E11.9) 12/04/2023 Acute URI (ICD-10 - J06.9) 12/06/2023 Type 2 diabetes bharath itus without complication (ICD-10 - E11.9) 03/09/2024 Type 2 diabetes bharath itus without complication (ICD-10 - E11.9) 04/14/2024 Sore throat (ICD-10 - J02.9) fluids, rest, supportive measures for fever/symptom relief 05/01/2024 Onycholysis (ICD-10 - L60.1) 01/08/2024 Pure hypercholesterolemia (ICD-10 - E78.00) 01/11/2024 Atrophic vaginitis (ICD-10 - N95.2) 05/19/2024 Hyperthyroidism (ICD -10 - E05.90) 05/19/2024 Blood pressure eleva shahnaz without history of HTN (ICD-10 - R03.0) 07/10/2024 Hyperthyroidism (ICD -10 - E05.90) 08/18/2024 Essential hypertensi on (ICD-10 - I10) Blood pressure journal 08/18/2024 Hyperthyroidism (ICD -10 - E05.90) 08/28/2024 Type 2 diabetes bharath itus without complication (ICD-10 - E11.9) 09/04/2024 Plantar fasciitis of left foot (ICD-10 - M72.2) 09/04/2024 Type 2 diabetes bharath itus without complication (ICD-10 - E11.9) 09/05/2024 Screening for breast cancer (ICD-10 - Z12.39) 09/05/2024 Screening for colon cancer (ICD-10 - Z12.11) 09/12/2024 Essential hypertensi on (ICD-10 - I10) 09/15/2024 Type 2 diabetes bharath itus without complication (ICD-10 - E11.9) 06/08/2024 Essential hypertensi on (ICD-10 - I10) 06/08/2024 Hyperthyroidism (ICD -10 - E05.90) 03/31/2024 Hyperkalemia (ICD-10 - E87.5) 06/08/2024 Type 2 diabetes bharath itus without complication (ICD-10 - E11.9) 09/15/2024 Essential hypertensi on (ICD-10 - I10) 09/04/2024 BMI 29.0-29.9,adult (ICD-10 - Z68.29) 08/18/2024 BMI 28.0-28.9,adult (ICD-10 - Z68.28) 05/19/2024 Cardiac murmur (ICD- 10 - R01.1) 01/18/2024 Hyperkalemia (ICD-10 - E87.5) 05/01/2024 Type 2 diabetes bharath itus without complication (ICD-10 - E11.9) 01/08/2024 Atrophic vaginitis (ICD-10 - N95.2) 01/08/2024 Onycholysis (ICD-10 - L60.1) 06/08/2024 BMI 29.0-29.9,adult (ICD-10 - Z68.29) Plan Of Treatment Pending Test Test Name Order Date Mammogram 09/05/2024 Cologuard 09/05/2024 Next Appt Details Provider Name:Oliver Howell ry, 12/11/2024 05:00:00 PM, [address] [facility] [address] [facility], [address], [place], [place], [id number], Insurance Providers Payer Name Payer Address Payer Phone Subscriber Number Group Number Insured Name Patient Relationship to Insured Coverage Start Date Coverage End Date [employer] [address] [place] [address] [id number] Anne Marie Dang Self - patient is the insured Medical (General) History Medical History History ICD Code Type 2 Diabetes Hyperlipidemia Hypothyroidism Goiter, low TSH Kidney Stones hypertension Surgical History Surgery Date(Month/Year) Thyroid Biopsy 2006 Hospitalization History Reason Date(Month/Year)
--- NOTE | 2024-09-26 16:33 | MM_ITS ---
PROCEDURE INFORMATION: Exam: MG Bilateral Screening 3D Mammography Exam date and time: 09/26/2024 4:36 PM Age: 59 years old Clinical indication: Screening examination TECHNIQUE: Imaging protocol: Bilateral Screening tomosynthesis and 2D mammography including computer-aided detection (CAD) when performed. COMPARISON: 1. MG MM DIG SCREENING MAMM BI W/CAD 01/11/2019 4:58 PM 2. MG SCBI MM Dig screening mamm BI w/CAD 12/29/2017 4:55 PM FINDINGS: MAMMOGRAPHY: Breast composition: There are scattered areas of fibroglandular density. Mass: No suspicious masses. Architectural distortion: None. Calcifications: No suspicious calcifications. Asymmetric density: None. Skin thickening: None. Axillary adenopathy: None. IMPRESSION: No mammographic evidence of malignancy. Annual screening is recommended unless otherwise clinically indicated. ASSESSMENT: BI-RADS Category 1: Negative.
== END 2024-09-26 23:59 | disposition home or self-care (01) ==
LOC: RAD 16:21
PROVIDERS: PCP Family Medicine; Visit Provider Family Medicine
DX: Z12.31 Encounter for screening mammogram for malignant neoplasm of breast (principal); R92.323 Mammographic fibroglandular density, bilateral breasts
CPT/HCPCS: 77063; 77067